=== PATIENT | male | born 1965 | race African-American/Black ===

== ENCOUNTER 2025-01-27 09:25 | Outpatient (CLI) | payer OTHER | END 2025-01-27 09:26 | disposition home or self-care (01) | LOC: CSHSLEEP 09:25 | PROVIDERS: ATTEND Psychiatry & Neurology Sleep Medicine | DX: G47.33 Obstructive sleep apnea (adult) (pediatric) (principal); G47.10 Hypersomnia, unspecified | CPT/HCPCS: 95810 ==